=== PATIENT | male | born 1940 | race Two or more races ===

== ENCOUNTER 2017-07-28 18:29 | Inpatient (IN) | payer MEDICARE, OTHER ==
[~2017-07-28] VITALS: Ht 170.2 cm; Wt 76.7 kg
--- NOTE | 2017-07-28 20:45 | NUR ---
Admitted patient from [facility], transported via [facility]. Pt transferred safely via gurney with belongings. MD Dr. Diaz notified of the admission. Vital signs taken and recorded, denies c/o pain or discomfort at this time. MRSA swab collected and taken to lab. Pt oriented to unit and room. Medications reconciled. Code status and dietary order placed. Call light placed within reach along with personal belongings. Will continue to monitor.
[2017-07-28 20:50] VITALS: BP 139/75
[2017-07-28] MEDS ORDERED: CLOP75TA33 PO (23:14)
[2017-07-28] MEDS ORDERED: AMLO5TAB2 PO (23:14)
[2017-07-28] MEDS ORDERED: ATOR80TA PO (23:14)
[2017-07-28] MEDS ORDERED: ASPI-605 PO (23:14)
[2017-07-28] MEDS ORDERED: POLY17PO4 PO (23:14)
[2017-07-28] MEDS ORDERED: Z GUARD REMEDY PASTE 57 GM TUBE TOP PRN (23:30)
[2017-07-29 08:14] VITALS: BP 159/71
[2017-07-29] MEDS: AMLODIPINE 5 MG TABLET PO SCH (08:35)
[2017-07-29] MEDS: ASPIRIN EC 81 MG TABLET.DR PO SCH (08:35)
[2017-07-29] MEDS: CLOPIDOGREL 75 MG TABLET PO SCH (08:35)
[2017-07-29] MEDS: MIRALAX 17 GM POWD.PACK PO SCH (08:36)
--- NOTE | 2017-07-29 08:41 | NUR ---
RECEIVED PATIENT AWAKE, UP ON THE CHAIR, VERBALLY RESPONSIVE, COHERENT, NOT IN ANY FORM OF ACUTE DISTRESS. HE DENIES ANY PAIN OR DISCOMFORT AT THIS TIME. CALL LIGHT PLACED WITHIN REACH, REMINDED TO USE CALL LIGHT WHEN IN NEED OF ASSISTANCE WITH VERBALIZED UNDERSTANDING. ASSISTED TO HIS NEEDS.
--- NOTE | 2017-07-29 09:01 | NUR ---
PATIENT COMPLAINED OF HEADACHE. DR. KUNZ SAW AND EXAMINED PATIENT WITH ORDER ACETAMINOPHEN 650MG PO Q4HRS PRN. ORDER CARRIED OUT.
[2017-07-29] MEDS: ACETAMINOPHEN 325 MG TABLET PO PRN ×3 (09:20→20:30)
[2017-07-29 15:30] VITALS: BP 132/71
--- NOTE | 2017-07-29 19:15 | NUR ---
Received patient laying in bed. Alert and verbally responsive. Able to make needs known. Denies any pain and discomfort at this time. No acute distress. No SOB. Kept clean and dry. Assisted to bathroom. Able to ambulate with walker. Bed alarm on. Bed in low position. All needs attended to promptly. Call light within reach. Will continue to monitor.
[2017-07-29 20:00] VITALS: BP 128/62
[2017-07-29] MEDS: ATORVASTATIN 40 MG TABLET PO SCH (20:29)
[2017-07-30] MEDS: ACETAMINOPHEN 325 MG TABLET PO PRN ×3 (00:58→20:34)
--- NOTE | 2017-07-30 07:09 | NUR ---
Patient slept intermittently throughout the night. Alert and verbally responsive. Tylenol given as needed for headaches. No acute distress. No SOB. Assisted to bathroom with walker. Tolerated well. Also uses urinal at bedside. Kept clean and dry. Patient sitting in chair at this time. Verbalize to call for help when ready to go back to bed. Verbalizes understanding. All needs attended to promptly. Call light within reach. Will continue to monitor.
[2017-07-30 08:00] VITALS: BP 143/83
--- NOTE | 2017-07-30 08:00 | NUR ---
Received patient sitting in chair. With tolerable pain over neck and shoulders rated as 5/10. Pain medications not due at this time. Alert x3. With periods of forgetfulness. Call light within reach
[2017-07-30] MEDS: CLOPIDOGREL 75 MG TABLET PO SCH (08:17)
[2017-07-30] MEDS: MIRALAX 17 GM POWD.PACK PO SCH (08:17)
[2017-07-30] MEDS: ASPIRIN EC 81 MG TABLET.DR PO SCH (08:20)
[2017-07-30] MEDS: AMLODIPINE 5 MG TABLET PO SCH (08:20)
--- NOTE | 2017-07-30 10:42 | NUR ---
Up with occupational therapy, tolerating therapy well. Shower done with minimum assistance.
--- NOTE | 2017-07-30 20:13 | NUR ---
sitting on the chair when received. [id number] with some periods of confusion. kept comfortable. voiding well without any difficulty. fall precautions maintained. siderails up for safety. attended to needs.
[2017-07-30 20:24] VITALS: BP 134/65
[2017-07-30] MEDS: ATORVASTATIN 40 MG TABLET PO SCH (20:30)
--- NOTE | 2017-07-31 06:00 | NUR ---
Patient stable through shift. No acute distress noted. patient sat & slept in chair by bedside throughout the shift. Encouraged pt to use call light when ambulating or using restroom. Safety measures implemented. All needs attended to. Medication administered per MD order. call light within reach. will endorse to day shift nurse.
[2017-07-31 08:16] VITALS: BP 164/90
[2017-07-31 10:35] VITALS: BP 164/90
[2017-07-31] MEDS: ASPIRIN EC 81 MG TABLET.DR PO SCH (10:35)
[2017-07-31] MEDS: AMLODIPINE 5 MG TABLET PO SCH (10:35)
[2017-07-31] MEDS: CLOPIDOGREL 75 MG TABLET PO SCH (10:35)
[2017-07-31] MEDS: MIRALAX 17 GM POWD.PACK PO SCH (10:35)
--- NOTE | 2017-07-31 13:20 | NUR ---
INTERDISCIPLINARY TEAM CONFERENCE
[2017-07-31] MEDS: ACETAMINOPHEN 325 MG TABLET PO PRN (14:47)
--- NOTE | 2017-07-31 16:53 | NUR ---
D/C NOTE REPORT GIVEN TO BERNARD AT [facility]. AMBULANCE HERE TO PICK HIM UP. D/C INSTRUCTIONS AND PAPERWORKS GIVEN. DC/ ORDER AND PICS IN CHART
== END 2017-07-31 17:50 | DRG 56 ==
PROVIDERS: ADMIT Physical Medicine & Rehabilitation Pain Medicine; ATTEND Physical Medicine & Rehabilitation Pain Medicine
DX: I69.398 Other sequelae of cerebral infarction (principal); G93.41 Metabolic encephalopathy; I69.898 Other sequelae of other cerebrovascular disease; I11.0 Hypertensive heart disease with heart failure; I50.9 Heart failure, unspecified; E78.5 Hyperlipidemia, unspecified; K59.09 Other constipation; R53.1 Weakness; R26.2 Difficulty in walking, not elsewhere classified; R47.81 Slurred speech
CPT/HCPCS: 92507; 92523; 92526; 92610; 97110; 97116; 97530; 97535